=== PATIENT | female | born 1985 | race Caucasian/White ===

== ENCOUNTER → 2016-07-26 | Outpatient (CLI) | payer OTHER ==
[2015-10-03 17:47] VITALS: BP 115/74
[~2016-07-26] MED LIST: HYDR-971 PO; ONDA4TAB10 SL; TAMS0.4C97 PO
[2016-07-26 07:57] LABS: BASO % 0 % (0-3); EOS % 1 % (0-3); HEMATOCRIT 43.5 % (36.0-47.0); HEMOGLOBIN 14.8 g/dL (12.0-15.5); LYMPH # 2.1 x10^3/uL (1.0-4.8); LYMPH % 21 % (24-48); MEAN CORPUSCULAR HEMOGLOBIN 32 pg (25-35); MEAN CORPUSCULAR HGB CONC 34 g/dL (31-37); MEAN CORPUSCULAR VOLUME 93 fL (79-100); MONO % 6 % (0-9); NEUT % 72 % (31-73); PLATELET COUNT 222 x10^3/uL (140-400); POTASSIUM 4.1 mmol/L (3.5-5.1); RED BLOOD COUNT 4.68 x10^6/uL (3.50-5.40); RED CELL DISTRIBUTION WIDTH 13.5 % (11.5-14.5)
[2016-07-26 08:12] LABS: ALBUMIN/GLOBULIN RATIO 0.9 (1.0-1.7); CALCIUM 9.3 mg/dL (8.5-10.1); CREATININE 0.7 mg/dL (0.6-1.0); TOTAL BILIRUBIN 0.3 mg/dL (0.2-1.0); TOTAL PROTEIN 8.3 g/dL (6.4-8.2)
[2016-07-26 08:29] LABS: CHOLESTEROL/HDL RATIO 4.8
[2016-07-26 09:06] LABS: FREE T4 0.83 ng/dL (0.76-1.46)
== END | disposition home or self-care (01) ==
LOC: LAB 07:05
PROVIDERS: ATTEND Nurse Practitioner Family
DX: Z13.228 Encounter for screening for other metabolic disorders (principal); E78.00 Pure hypercholesterolemia, unspecified; F31.9 Bipolar disorder, unspecified
CPT/HCPCS: 36415; 80053; 80061; 84439; 84443; 85027

== ENCOUNTER 2017-03-20 14:17 | Emergency (ER) | payer OTHER ==
[2017-03-20 14:46] LABS: BILIRUBIN,URINE NEGATIVE (NEG); CLARITY,URINE CLEAR; COLOR,URINE YELLOW; GLUCOSE,URINE NEGATIVE (NEG); NITRITE,URINE NEGATIVE (NEG); PROTEIN,URINE NEGATIVE (NEG-TRACE); UROBILINOGEN,URINE 0.2 mg/dL (0.2 mg/dL)
[2017-03-20 14:59] LABS: BACTERIA,URINE MODERATE /HPF (0-FEW); RBC,URINE OCC /HPF (0-2); SQUAMOUS EPITHELIAL CELL,UR MANY /LPF
[2017-03-20 15:07] LABS: ADD MAN DIFF? NO
[2017-03-20 15:09] LABS: BASO % 0 % (0-3); EOS # 0.1 x10^3/uL (0.0-0.7); EOS % 1 % (0-3); HEMATOCRIT 46.1 % (36.0-47.0); HEMOGLOBIN 15.8 g/dL (12.0-15.5); LYMPH # 3.3 x10^3/uL (1.0-4.8); LYMPH % 30 % (24-48); MEAN CORPUSCULAR HEMOGLOBIN 32 pg (25-35); MEAN CORPUSCULAR HGB CONC 34 g/dL (31-37); MEAN CORPUSCULAR VOLUME 94 fL (79-100); MONO # 0.7 x10^3/uL (0.0-1.1); MONO % 7 % (0-9); NEUT % 63 % (31-73); PLATELET COUNT 235 x10^3/uL (140-400); RED BLOOD COUNT 4.93 x10^6/uL (3.50-5.40); RED CELL DISTRIBUTION WIDTH 13.5 % (11.5-14.5); WHITE BLOOD COUNT 11.1 x10^3/uL (4.0-11.0)
[2017-03-20] MEDS: IV NORMAL SALINE 1000ML BAG 1,000 ML IV ×2 (15:18)
[2017-03-20] MEDS: ONDANSETRON PF 4 MG/2 ML VIAL. IV ×2 (15:19)
[2017-03-20 15:49] LABS: NEG OBC UR NEG; POS OBC UR POS; U PREG PATIENT NEGATIVE (NEG)
[2017-03-20] MEDS: KETOROLAC 30 MG/ML INJ. IV ×2 (15:52)
[2017-03-20 16:14] LABS: ANION GAP 8 (6-14); BLOOD UREA NITROGEN 7 mg/dL (7-20); BUN/CREATININE RATIO 12 (6-20); CALCIUM 8.6 mg/dL (8.5-10.1); CARBON DIOXIDE 29 mmol/L (21-32); CHLORIDE 104 mmol/L (98-107); CREATININE 0.6 mg/dL (0.6-1.0); GFR 115.1; GLUCOSE 84 mg/dL (70-99); POTASSIUM 4.4 mmol/L (3.5-5.1); SODIUM 141 mmol/L (136-145)
[2017-03-20 16:18] LABS: ALBUMIN 3.5 g/dL (3.4-5.0); ALK PHOS 46 U/L (46-116); ALT (SGPT) 14 U/L (14-59); AST (SGOT) 11 U/L (15-37); LIPASE 132 U/L (73-393); TOTAL BILIRUBIN 0.1 mg/dL (0.2-1.0); TOTAL PROTEIN 6.9 g/dL (6.4-8.2)
[2017-03-20] MEDS ORDERED: CONTRAST GIVEN MC ×2 (16:45)
[2017-03-20] MEDS: fentaNYL PF VIAL 100 MCG/2 ML VIAL IV ×4 (16:48→18:03)
[2017-03-20] MEDS: IOHEXOL 300 MG/ML 100ML VIAL. IV ×2 (16:50)
== END 2017-03-20 18:26 | disposition home or self-care (01) ==
LOC: ER 14:17
DX: R10.9 Unspecified abdominal pain (principal)
CPT/HCPCS: 36415; 74177; 80053; 81001; 81025; 83690; 85025; 87086; 96361; 96374; 96375; 96376; 99285-25; J1885; J2405; J3010; J7030; Q9967

== ENCOUNTER 2017-03-21 16:52 | Emergency (ER) | payer OTHER ==
[2017-03-21] MEDS ORDERED: CONTRAST GIVEN MC ×2 (18:00)
[2017-03-21 18:04] LABS: ADD MAN DIFF? NO
[2017-03-21 18:08] LABS: BASO # 0.1 x10^3/uL (0.0-0.2); BASO % 1 % (0-3); EOS # 0.1 x10^3/uL (0.0-0.7); EOS % 1 % (0-3); HEMATOCRIT 40.8 % (36.0-47.0); HEMOGLOBIN 13.9 g/dL (12.0-15.5); LYMPH # 2.1 x10^3/uL (1.0-4.8); LYMPH % 19 % (24-48); MEAN CORPUSCULAR HEMOGLOBIN 32 pg (25-35); MEAN CORPUSCULAR HGB CONC 34 g/dL (31-37); MEAN CORPUSCULAR VOLUME 94 fL (79-100); MONO # 0.6 x10^3/uL (0.0-1.1); MONO % 5 % (0-9); NEUT # 8.5 x10^3uL (1.8-7.7); NEUT % 75 % (31-73); PLATELET COUNT 208 x10^3/uL (140-400); RED BLOOD COUNT 4.34 x10^6/uL (3.50-5.40); RED CELL DISTRIBUTION WIDTH 13.3 % (11.5-14.5); WHITE BLOOD COUNT 11.4 x10^3/uL (4.0-11.0)
[2017-03-21] MEDS: IV NORMAL SALINE 1000ML BAG 1,000 ML IV ×4 (18:09→20:00)
[2017-03-21] MEDS: ONDANSETRON PF 4 MG/2 ML VIAL. IV ×2 (18:09)
[2017-03-21 18:12] LABS: BILIRUBIN,URINE NEGATIVE (NEG); CLARITY,URINE CLEAR; COLOR,URINE YELLOW; GLUCOSE,URINE NEGATIVE (NEG); NITRITE,URINE NEGATIVE (NEG); PH,URINE 6.5; PROTEIN,URINE NEGATIVE (NEG-TRACE); UROBILINOGEN,URINE 0.2 mg/dL (0.2 mg/dL)
[2017-03-21 18:19] LABS: ANION GAP 12 (6-14); BLOOD UREA NITROGEN 8 mg/dL (7-20); BUN/CREATININE RATIO 11 (6-20); CARBON DIOXIDE 28 mmol/L (21-32); CHLORIDE 109 mmol/L (98-107); CREATININE 0.7 mg/dL (0.6-1.0); GFR 96.4; GLUCOSE 100 mg/dL (70-99); POTASSIUM 4.2 mmol/L (3.5-5.1); SODIUM 149 mmol/L (136-145)
[2017-03-21] MEDS: IOHEXOL 300 MG/ML 100ML VIAL. IV ×2 (18:21)
[2017-03-21 18:25] LABS: ALBUMIN 3.8 g/dL (3.4-5.0); ALBUMIN/GLOBULIN RATIO 1.1 (1.0-1.7); ALK PHOS 50 U/L (46-116); ALT (SGPT) 12 U/L (14-59); AST (SGOT) 15 U/L (15-37); BACTERIA,URINE 0 /HPF (0-FEW); LIPASE 100 U/L (73-393); RBC,URINE OCC /HPF (0-2); SQUAMOUS EPITHELIAL CELL,UR MOD /LPF; TOTAL BILIRUBIN 0.2 mg/dL (0.2-1.0); TOTAL PROTEIN 7.4 g/dL (6.4-8.2); WBC,URINE OCC /HPF (0-4)
[2017-03-21] MEDS: KETOROLAC 30 MG/ML INJ. IV ×4 (19:01→20:09)
[2017-03-21] MEDS ORDERED: KETOROLAC 15 MG/ML VIAL. ×2 (19:50)
== END 2017-03-21 22:04 | disposition home or self-care (01) ==
LOC: ER 16:52
DX: R11.2 Nausea with vomiting, unspecified (principal); R10.9 Unspecified abdominal pain; B34.9 Viral infection, unspecified; Z87.442 Personal history of urinary calculi
CPT/HCPCS: 36415; 74177; 80053; 81001; 83690; 85025; 96361; 96374; 96375; 96376; 99285-25; J1885; J2405; J7030; Q9967

== ENCOUNTER 2017-05-10 09:32 | Emergency (ER) | payer OTHER ==
[2017-05-10 10:06] LABS: ADD MAN DIFF? NO
[2017-05-10] MEDS: IV NORMAL SALINE 1000ML BAG 1,000 ML IV (10:08)
[2017-05-10] MEDS: KETOROLAC 30 MG/ML INJ. IV (10:08)
[2017-05-10] MEDS: MORPHINE SULFATE 4 MG/ML DISP.SYRIN. IV (10:10)
[2017-05-10 10:13] LABS: BASO % 0 % (0-3); EOS # 0.2 x10^3/uL (0.0-0.7); EOS % 2 % (0-3); HEMATOCRIT 44.5 % (36.0-47.0); HEMOGLOBIN 15.4 g/dL (12.0-15.5); LYMPH # 2.7 x10^3/uL (1.0-4.8); LYMPH % 33 % (24-48); MEAN CORPUSCULAR HEMOGLOBIN 32 pg (25-35); MEAN CORPUSCULAR HGB CONC 35 g/dL (31-37); MEAN CORPUSCULAR VOLUME 93 fL (79-100); MONO # 0.5 x10^3/uL (0.0-1.1); MONO % 6 % (0-9); NEUT % 59 % (31-73); PLATELET COUNT 208 x10^3/uL (140-400); RED BLOOD COUNT 4.79 x10^6/uL (3.50-5.40); RED CELL DISTRIBUTION WIDTH 13.3 % (11.5-14.5); WHITE BLOOD COUNT 8.4 x10^3/uL (4.0-11.0)
[2017-05-10 10:30] LABS: URINE HCG POC HCG NEGATIVE (Negative)
[2017-05-10 10:30] LABS: ANION GAP 9 (6-14); BLOOD UREA NITROGEN 10 mg/dL (7-20); BUN/CREATININE RATIO 13 (6-20); CALCIUM 9.8 mg/dL (8.5-10.1); CARBON DIOXIDE 27 mmol/L (21-32); CHLORIDE 103 mmol/L (98-107); CREATININE 0.8 mg/dL (0.6-1.0); GFR 82.6; GLUCOSE 101 mg/dL (70-99); POTASSIUM 3.5 mmol/L (3.5-5.1); SODIUM 139 mmol/L (136-145)
[2017-05-10 10:37] LABS: ALBUMIN 4.2 g/dL (3.4-5.0); ALBUMIN/GLOBULIN RATIO 1.1 (1.0-1.7); ALK PHOS 63 U/L (46-116); ALT (SGPT) 22 U/L (14-59); AST (SGOT) 13 U/L (15-37); LIPASE 142 U/L (73-393); TOTAL BILIRUBIN 0.3 mg/dL (0.2-1.0)
[2017-05-10] MEDS: fentaNYL PF VIAL 100 MCG/2 ML VIAL IV (10:54)
[2017-05-10 11:08] LABS: BILIRUBIN,URINE NEGATIVE (NEG); CLARITY,URINE CLEAR; COLOR,URINE YELLOW; GLUCOSE,URINE NEGATIVE (NEG); NITRITE,URINE NEGATIVE (NEG); PH,URINE 6.5; PROTEIN,URINE NEGATIVE (NEG-TRACE); UROBILINOGEN,URINE 0.2 mg/dL (0.2 mg/dL)
[2017-05-10 11:14] LABS: RBC,URINE 0 /HPF (0-2); SQUAMOUS EPITHELIAL CELL,UR FEW /LPF; WBC,URINE 0 /HPF (0-4)
[2017-05-10 11:15] LABS: BACTERIA,URINE FEW /HPF (0-FEW)
[2017-05-10] MEDS: diazePAM 5 MG TABLET PO (13:09)
== END 2017-05-10 13:39 | disposition home or self-care (01) ==
LOC: ER 09:32
DX: R10.32 Left lower quadrant pain (principal); R11.0 Nausea; Z87.442 Personal history of urinary calculi
CPT/HCPCS: 36415; 74176; 76856; 80053; 81001; 81025; 83690; 85025; 96361; 96374; 96375; 99285-25; J1885; J2270; J3010; J7030

== ENCOUNTER → 2017-10-24 | Outpatient (CLI) | payer OTHER ==
[2017-05-10 11:33] VITALS: BP 119/70
[~2017-10-24] MED LIST changes: +DIAZ5TAB PO; +IBUP-1060 PO
--- NOTE | 2017-10-24 14:41 | RAD ---
EXAM: Obstetrics sonogram. HISTORY: anatomy survey and weight assessment. TECHNIQUE: Sonographic imaging of a gravid uterus was performed. COMPARISON: None. FINDINGS: There is a single intrauterine fetus in breech presentation with a heart rate of 143 bpm. There is body motion during the exam. The cervix measures 3.0 cm in length. There is a posterior placenta with marginal placenta previa. The anatomic fluid is normal at 9.3 cm. The stomach, kidneys, bladder, spine, brain, facial profile, extremities and heart are unremarkable. There is a three-vessel umbilical cord. The biparietal diameter is 3.92 cm, corresponding with 17 weeks and 6 days. The head circumference is 14.61 cm, corresponding with 17 weeks and 5 days. The abdominal circumference is 12.99 cm, corresponding with 18 weeks and 4 days. The femoral length is 2.63 cm, corresponding with 18 weeks and 0 days. The estimated gestational age patient combined ultrasound measurements is 18 weeks and 0 days. The estimated weight is 229 g. The estimated due date based on ultrasound measurements is 03/27/2018. IMPRESSION: 1. Single intrauterine fetus in breech presentation with a heart rate of 143 bpm and gestational age based on ultrasound measurements of 18 weeks and 0 days. 2. Marginal placenta previa. Short-term follow-up is recommended. Electronically signed by: Nereida Bautista MD (10/24/2017 2:38 PM) [facility]
== END | disposition home or self-care (01) ==
LOC: US 13:01
PROVIDERS: ATTEND Obstetrics & Gynecology
DX: O32.1XX0 Maternal care for breech presentation, not applicable or unspecified (principal); O44.22 Partial placenta previa NOS or without hemorrhage, second trimester; Z3A.18 18 weeks gestation of pregnancy
CPT/HCPCS: 76805

== ENCOUNTER → 2017-12-29 | Outpatient (CLI) | payer OTHER ==
[2017-05-10 11:33] VITALS: BP 119/70
[2017-12-22 08:52] LABS: BASO % 0 % (0-3); EOS # 0.1 x10^3/uL (0.0-0.7); EOS % 1 % (0-3); HEMATOCRIT 35.7 % (36.0-47.0); HEMOGLOBIN 12.5 g/dL (12.0-15.5); LYMPH # 1.9 x10^3/uL (1.0-4.8); LYMPH % 19 % (24-48); MEAN CORPUSCULAR HEMOGLOBIN 33 pg (25-35); MEAN CORPUSCULAR HGB CONC 35 g/dL (31-37); MEAN CORPUSCULAR VOLUME 94 fL (79-100); MONO # 0.4 x10^3/uL (0.0-1.1); MONO % 4 % (0-9); NEUT # 7.5 x10^3uL (1.8-7.7); NEUT % 76 % (31-73); PLATELET COUNT 167 x10^3/uL (140-400); RED BLOOD COUNT 3.79 x10^6/uL (3.50-5.40); RED CELL DISTRIBUTION WIDTH 13.4 % (11.5-14.5)
[~2017-12-29] MED LIST changes: +HYDR-3164 PO; -HYDR-971 PO
--- NOTE | 2017-12-29 17:15 | RAD ---
Obstetrical ultrasound-limited, 12/29/2017: HISTORY: Follow-up marginal placenta previa There is a single intrauterine fetus in a cephalic orientation. The cervical length is 4.9 cm. The placenta is located posteriorly and its inferior end appears to lie well above the region of the cervix. There is no current evidence of a placenta previa. No periplacental abnormality is detected. movement and cardiac are cardiac activity are evident with a heart rate of 144 bpm. A full survey was not performed at this time. A normal amount of amniotic fluid is evident. IMPRESSION: Limited exam demonstrating no current evidence of placenta previa. Electronically signed by: Víctor Deluca MD (12/29/2017 5:12 PM) [facility]
== END | disposition home or self-care (01) ==
LOC: US 10:50
PROVIDERS: ATTEND Obstetrics & Gynecology
DX: O44.02 Complete placenta previa NOS or without hemorrhage, second trimester (principal); Z3A.27 27 weeks gestation of pregnancy
CPT/HCPCS: 36415; 76816; 82947; 82950; 85025

== ENCOUNTER 2018-03-05 10:55 | Observation (INO) | payer OTHER ==
[2017-05-10 11:33] VITALS: BP 119/70
[~2018-03-05] VITALS: Ht 160 cm; Wt 71.7 kg
[2018-03-05 11:56] LABS: BILIRUBIN,URINE NEGATIVE (NEG); CLARITY,URINE CLEAR; COLOR,URINE YELLOW; NITRITE,URINE NEGATIVE (NEG); PROTEIN,URINE NEGATIVE (NEG-TRACE); UROBILINOGEN,URINE 0.2 mg/dL (0.2 mg/dL)
[2018-03-05 12:05] LABS: BACTERIA,URINE FEW /HPF (0-FEW); SQUAMOUS EPITHELIAL CELL,UR MOD /LPF; WBC,URINE OCC /HPF (0-4)
[2018-03-05] MEDS ORDERED: ACETAMINOPHEN 500 MG TABLET PO ONE (12:30)
[2018-03-05 12:47] LABS: BASO % 0 % (0-3); EOS % 0 % (0-3); HEMATOCRIT 34.8 % (36.0-47.0); HEMOGLOBIN 11.8 g/dL (12.0-15.5); LYMPH % 20 % (24-48); MEAN CORPUSCULAR HEMOGLOBIN 30 pg (25-35); MEAN CORPUSCULAR HGB CONC 34 g/dL (31-37); MEAN CORPUSCULAR VOLUME 88 fL (79-100); MONO # 0.7 x10^3/uL (0.0-1.1); MONO % 7 % (0-9); NEUT # 7.3 x10^3uL (1.8-7.7); NEUT % 72 % (31-73); PLATELET COUNT 117 x10^3/uL (140-400); RED BLOOD COUNT 3.96 x10^6/uL (3.50-5.40); WHITE BLOOD COUNT 10.1 x10^3/uL (4.0-11.0)
[2018-03-05 12:57] LABS: CREATININE 0.6 mg/dL (0.6-1.0); GFR 114.4; POTASSIUM 3.6 mmol/L (3.5-5.1)
[2018-03-05 13:01] LABS: ALBUMIN 2.9 g/dL (3.4-5.0); ALBUMIN/GLOBULIN RATIO 0.8 (1.0-1.7); TOTAL BILIRUBIN 0.3 mg/dL (0.2-1.0); TOTAL PROTEIN 6.4 g/dL (6.4-8.2)
[2018-03-17] MEDS ORDERED: PREN1TAB58 PO (18:36)
[2018-03-20] MEDS ORDERED: DOCU-109 PO (13:25)
[2018-03-20] MEDS ORDERED: IBUP-1060 PO (13:25)
[2018-03-20] MEDS ORDERED: HYDR-3164 PO (13:25)
== END 2018-03-05 15:15 | disposition home or self-care (01) ==
LOC: 3 SO LND 10:55
PROVIDERS: ADMIT Obstetrics & Gynecology; ATTEND Obstetrics & Gynecology
DX: O26.893 Other specified pregnancy related conditions, third trimester (principal); R51 Headache; R11.0 Nausea; H53.8 Other visual disturbances; Z3A.36 36 weeks gestation of pregnancy
CPT/HCPCS: 36415; 80053; 81001; 85025; 87086; G0378; G0379

== ENCOUNTER → 2018-07-29 | Outpatient (CLI) | payer OTHER ==
[2018-03-20 16:50] VITALS: BP 131/87
[~2018-07-29] MED LIST changes: +DOCU-109 PO; +PREN1TAB58 PO
[2018-07-29 08:29] LABS: BASO % 0 % (0-3); EOS # 0.1 x10^3/uL (0.0-0.7); EOS % 2 % (0-3); HEMATOCRIT 40.1 % (36.0-47.0); HEMOGLOBIN 13.8 g/dL (12.0-15.5); LYMPH # 2.7 x10^3/uL (1.0-4.8); LYMPH % 34 % (24-48); MEAN CORPUSCULAR HEMOGLOBIN 30 pg (25-35); MEAN CORPUSCULAR HGB CONC 34 g/dL (31-37); MEAN CORPUSCULAR VOLUME 87 fL (79-100); MONO # 0.6 x10^3/uL (0.0-1.1); MONO % 7 % (0-9); NEUT # 4.6 x10^3uL (1.8-7.7); NEUT % 57 % (31-73); PLATELET COUNT 211 x10^3/uL (140-400); RED BLOOD COUNT 4.62 x10^6/uL (3.50-5.40); RED CELL DISTRIBUTION WIDTH 14.5 % (11.5-14.5); WHITE BLOOD COUNT 8.1 x10^3/uL (4.0-11.0)
[2018-07-29 08:47] LABS: ALBUMIN/GLOBULIN RATIO 1.1 (1.0-1.7); CALCIUM 9.3 mg/dL (8.5-10.1); CREATININE 0.7 mg/dL (0.6-1.0); GFR 95.8; POTASSIUM 4.1 mmol/L (3.5-5.1); TOTAL BILIRUBIN 0.3 mg/dL (0.2-1.0); TOTAL PROTEIN 7.5 g/dL (6.4-8.2)
[2018-07-29 08:54] LABS: CHOLESTEROL/HDL RATIO 3.8
[2018-07-29 08:58] LABS: FREE T4 0.75 ng/dL (0.76-1.46); THYROID STIM HORMONE (TSH) 1.614 uIU/mL (0.358-3.74)
== END | disposition home or self-care (01) ==
LOC: LAB 08:01
PROVIDERS: ATTEND Nurse Practitioner Family
DX: E78.5 Hyperlipidemia, unspecified (principal); F41.9 Anxiety disorder, unspecified
CPT/HCPCS: 36415; 80053; 80061; 84439; 84443; 85025